=== PATIENT | male | born 1940 ===

== ENCOUNTER → 2024-04-27 12:09 | Outpatient (REF) | payer OTHER, SELFPAY | LOC: HWRAD 12:09 | PROVIDERS: FAMILY PHYSICIAN Internal Medicine | DX: R31.0 Gross hematuria (principal) | CPT/HCPCS: 74178; Q9967 ==

== ENCOUNTER → 2024-05-24 12:04 | Outpatient (REF) | payer OTHER, SELFPAY | LOC: HWRAD 12:04 | DX: N20.1 Calculus of ureter (principal) | CPT/HCPCS: 74176 ==

== ENCOUNTER → 2024-08-26 13:50 | Outpatient (REF) | payer OTHER, SELFPAY | LOC: HWRAD 13:50 | PROVIDERS: FAMILY PHYSICIAN Internal Medicine | DX: N20.1 Calculus of ureter (principal) | CPT/HCPCS: 76775 ==